=== PATIENT | male | born 2005 | race Caucasian/White ===

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

== ENCOUNTER 2023-08-19 07:56 | Emergency (ER) | payer OTHER ==
[2023-08-19] MEDS: SODIUM CHLORIDE 0.9% 1,000 ML IV STA (08:24)
[2023-08-19] MEDS: ONDANSETRON 4 MG/2 ML VIAL IVP STA (08:25)
--- NOTE | 2023-08-19 08:25 | ED Physician Documentation ---
PD HPI NVD - Stated complaint Stated Complaint: VOMITING,NAUSEA - Chief complaint Chief Complaint: Abd Pain - History obtained from History obtained from: Patient - Additonal information Additional information: Patient is a 17-year-old male presenting for evaluation of nausea and vomiting, body aches for the past 2 days. Patient states he came home from work early Wednesday morning's feeling feverish with chills. Mother reports temperature of 101 at that time. Wednesday he woke up with nausea and vomiting that has been occurring approximately every 30 minutes and unable to keep even water down wi thout vomiting. Mother did give him 2 doses of Zofran without any improvement. 1 episode of loose stools. No blood in emesis or stools. No known sick contacts with similar symptoms. No recent travel. Denies hematuria. No abdominal pain. No cough, congestion. Does not take any regular medications.Denies drug or alcohol use but does occasionally use marijuana. Review of Systems Constitutional: reports: Fever, Chills, Myalgias Cardiac: denies: Chest pain / pressure Respiratory: denies: Dyspnea GI: reports: Nausea, Vomiting. denies: Abdominal Pain : denies: Dysuria PD PAST MEDICAL HISTORY - Past Medical History Past Medical History: Yes - Past Surgical History Past Surgical History: No - Present Medications Home Medications: Ambulatory Orders Medication Instructions Recorded Confirmed No Known Home Medications 08/14/21 08/19/23 - Allergies Allergies/Adverse Reactions: Allergies Allergy/AdvReac Type Severity Reaction Status Date / Time No Known Drug Allergies Allergy Verified 08/19/23 08:07 - Social History Does the pt smoke?: No Smoking Status: Never smoker Does the pt drink ETOH?: No Does the pt have substance abuse?: No - Immunizations Immunizations are current?: Yes - POLST Patient has POLST: No PD ED PE NORMAL - General General: Alert and oriented X 3, No acute distress, Well developed/nourished - HEENT HEENT: Atraumatic, Moist mucous membranes, Pharynx benign - Neck Neck: Supple, no meningeal sign - Cardiac Cardiac: RRR, Strong equal pulses - Respiratory Respiratory: No respiratory distress, Clear bilaterally - Abdomen Abdomen: Normal bowel sounds, Soft, Non distended, Other (Mild epigastric tenderness) - Back Back: No CVA TTP - Derm Derm: Warm and dry - Neuro Neuro: Normal speech Results - Vitals Vitals: Vital Signs - 24 hr 08/19/23 08/19/23 08/19/23 08:07 09:22 11:51 Temperature 36.6 C 36.7 C Heart Rate 89 70 78 Respiratory 15 15 16 Rate Blood Pressure 162/95 H 158/87 H 156/98 H O2 Saturation 98 98 98 08/19/23 11:54 Temperature 36.9 C Heart Rate 73 Respiratory 20 Rate Blood Pressure 156/95 H O2 Saturation 99 Oxygen O2 Source Room air - Labs Labs: Laboratory Tests 08/19/23 08/19/23 08/19/23 08:14 08:26 08:26 WBC 24.8 H RBC 5.75 Hgb 16.7 Hct 48.1 MCV 83.7 MCH 29.0 MCHC 34.7 RDW 12.8 Plt Count 317 MPV 8.9 Neut # (Auto) Not Reportable Lymph # (Auto) Not Reportable [place] # (Auto) Not Reportable Eos # (Auto) Not Reportable Baso # (Auto) Not Reportable Absolute Nucleated RBC Not Reportable Total Counted 100 Band Neuts % (Manual) 8 Reactive Lymphs % (Man) 2 Abnorm Lymph % (Manual) 0 Nucleated RBC % Not Reportable Neutrophils # (Manual) 23.3 H Lymphocytes # (Manual) 1.2 L Monocytes # (Manual) 0.2 Eosinophils # (Manual) 0.0 Basophils # (Manual) 0.0 Differential Comment MANUAL DIFFERENTIAL RBC Morph Micro Appear 2+ ANISOCYTOSIS Sodium 135 Potassium 3.4 L Chloride 98 L Carbon Dioxide 24 Anion Gap 13.0 BUN 16 Creatinine 1.0 Estimated GFR (MDRD) 96 Glucose 139 H Calcium 10.5 H Total Bilirubin 1.1 H AST 24 ALT 18 Alkaline Phosphatase 75 Total Protein 8.1 Albumin 5.0 Globulin 3.1 Albumin/Globulin Ratio 1.6 Lipase 25 Urine Color Urine Clarity Urine pH Ur Specific [place] Urine Protein Urine Glucose (UA) Urine Ketones Urine Occult Blood Urine Nitrite Urine Bilirubin Urine Urobilinogen Ur Leukocyte Esterase Urine RBC Urine WBC Urine WBC Clumps Ur Squamous Epith Cells Urine Bacteria Ur Microscopic Review Urine Culture Comments Nasal Adenovirus (PCR) NOT DETECTED Nasal B. parapertussis DNA (PCR) NOT DETECTED Nasal Coronavir 229E PCR NOT DETECTED Nasal Coronavir HKU1 PCR NOT DETECTED Nasal Coronavir NL63 PCR NOT DETECTED Nasal Coronavir OC43 PCR NOT DETECTED Nasal Enterovir/Rhinovir PCR NOT DETECTED Nasal Influenza B PCR NOT DETECTED Nasal Influenza A PCR NOT DETECTED Nasal Parainfluen 1 PCR NOT DETECTED Nasal Parainfluen 2 PCR NOT DETECTED Nasal Parainfluen 3 PCR NOT DETECTED Nasal Parainfluen 4 PCR NOT DETECTED Nasal RSV (PCR) NOT DETECTED Nasal B.pertussis DNA PCR NOT DETECTED Nasal C.pneumoniae (PCR) NOT DETECTED Damian Human Metapneumo PCR NOT DETECTED Nasal M.pneumoniae (PCR) NOT DETECTED Nasal SARS-CoV-2 (PCR) NOT DETECTED Group A Strep Rapid 08/19/23 08/19/23 09:31 11:26 WBC RBC Hgb Hct MCV MCH MCHC RDW Plt Count MPV Neut # (Auto) Lymph # (Auto) [place] # (Auto) Eos # (Auto) Baso # (Auto) Absolute Nucleated RBC Total Counted Band Neuts % (Manual) Reactive Lymphs % (Man) Abnorm Lymph % (Manual) Nucleated RBC % Neutrophils # (Manual) Lymphocytes # (Manual) Monocytes # (Manual) Eosinophils # (Manual) Basophils # (Manual) Differential Comment RBC Morph Micro Appear Sodium Potassium Chloride Carbon Dioxide Anion Gap BUN Creatinine Estimated GFR (MDRD) Glucose Calcium Total Bilirubin AST ALT Alkaline Phosphatase Total Protein Albumin Globulin Albumin/Globulin Ratio Lipase Urine Color DARK YELLOW Urine Clarity CLEAR Urine pH 6.5 Ur Specific [place] 1.025 Urine Protein >=300 H Urine Glucose (UA) NEGATIVE Urine Ketones >=80 H Urine Occult Blood SMALL H Urine Nitrite NEGATIVE Urine Bilirubin SMALL H Urine Urobilinogen 1 (NORMAL) Ur Leukocyte Esterase NEGATIVE Urine RBC 0-5 Urine WBC 0-3 Urine WBC Clumps PRESENT Ur Squamous Epith Cells NONE SEEN Urine Bacteria Few Ur Microscopic Review INDICATED Urine Culture Comments NOT INDICATED Nasal Adenovirus (PCR) Nasal B. parapertussis DNA (PCR) Nasal Coronavir 229E PCR Nasal Coronavir HKU1 PCR Nasal Coronavir NL63 PCR Nasal Coronavir OC43 PCR Nasal Enterovir/Rhinovir PCR Nasal Influenza B PCR Nasal Influenza A PCR Nasal Parainfluen 1 PCR Nasal Parainfluen 2 PCR Nasal Parainfluen 3 PCR Nasal Parainfluen 4 PCR Nasal RSV (PCR) Nasal B.pertussis DNA PCR Nasal C.pneumoniae (PCR) [place] Human Metapneumo PCR Nasal M.pneumoniae (PCR) Nasal SARS-CoV-2 (PCR) Group A Strep Rapid Negative PD Medical Decision Making - ED course Complexity details: reviewed results, re-evaluated patient, d/w patient, d/w family ED course: Patient is a 17-year-old male presenting for evaluation of feeling feverish and chills with nausea and vomiting for the last day. Mild tenderness noted on exam. CBC, chemistries were reviewed and patient has a white count of 24.Potassium 3.4, chloride 98. Urinalysis shows occult blood but no RBCs. Patient was given IV fluids, Zofran and Reglan without significant improvement in his nausea and vomiting. Given his white count I did obtain a chest x-ray which was unremarkable for pneumonia as well as a CT scan of the abdomen and pelvis as he did have some mild right lower quadrant tenderness. No signs of appendicitis. Patient did admit to cannabis use and uses several times a week. Given this history we then opted to give a trial of droperidol which gave patient significant improvement in his symptoms. Strep test was also done as his girlfriend recently tested positive for strep and is negative.Respiratory swab is unremarkable. Patient feeling better here after droperidol and further fluids. He is ambulating without difficulty. Patient reports having noticed some blood in his urine recently and has had this previously and was evaluated at [facility]'s urology. Recommend close urology follow-up and given information for Dr. Floyd. No symptoms to suggest UTI.Patient tolerating p.o. intake here. Counseled regarding cannabis use. Patient is comfortable with plan for discharge. 09 - Nausea is better. Reviewed labs including elevated white count of 24, 000. On repeat abdominal exam still has some epigastric tenderness also reports tenderness with palpation of the right lower quadrant. Departure - Departure Disposition: 01 Home, Self Care Clinical Impression: Leukocytosis, Nausea & vomiting, Microscopic hematuria Condition: Stable Instructions: ED Nausea Vomiting, ED Abdominal Pain Unkn Cause Male Follow-Up: Ludin Floyd MD [Provider Admit Priv/Credential] - Comments: Your testing today shows that your white blood cell count was high. Your strep test is negative. Your respiratory swab is negative for tested viruses including COVID and influenza. Your urine does not show infection but does have a small amount of blood in it. Your CT scan of the abdomen and pelvis also does not show any significant findings like appendicitis. You were given a number of medications in order to get your nausea and vomiting under control. You have admitted to cannabis use and there is a possibility that cannabis is playing a role in your symptoms today so I would encourage you to cut down or altogether quit the use of cannabis. There is a condition called cannabis hyperemesis syndrome Which again may have caused your symptoms today. Return to the emergency department with any worsening symptoms. I have also included the information for local urologist as you have reported you have noticed some blood in your urine recently. I would recommend getting evaluated for this. Forms: PCP List Discharge Date/Time: 08/19/23 12:30
[2023-08-19 08:37] LABS: BASOPHILS % (AUTO) 0.1 %; HCT - HEMATOCRIT 48.1 % (42.0-52.0); HGB - HEMOGLOBIN 16.7 g/dL (14.0-18.0); LYMPHOCYTES % (AUTO) 3.6 %; MEAN CORPUSCULAR HGB CONC 34.7 g/dL (32.0-36.0); MEAN CORPUSCULAR VOLUME 83.7 fL (80.0-94.0); MEAN PLATELET VOLUME 8.9 fL (7.4-11.4); MONOCYTES % (AUTO) 6.7 %; NEUTROPHILS % (AUTO) 88.8 %; PLT - PLATELET COUNT 317 10^3/uL (130-450); RED BLOOD COUNT 5.75 10^6/uL (4.70-6.10); RED CELL DISTRIBUTION WIDTH 12.8 % (12.0-15.0); WHITE BLOOD COUNT 24.8 x10^3/uL (4.8-10.8)
[2023-08-19 08:46] LABS: ABNORMAL LYMPHS % (MANUAL) 0 %
[2023-08-19 08:56] LABS: ALBUMIN/GLOBULIN RATIO 1.6 (1.0-2.2); BILIRUBIN,TOTAL 1.1 mg/dL (0.2-1.0); CALCIUM 10.5 mg/dL (8.5-10.3); POTASSIUM 3.4 mmol/L (3.5-4.5); TOTAL PROTEIN 8.1 g/dL (6.4-8.9)
[2023-08-19 09:04] LABS: BAND NEUTROPHILS % (MANUAL) 8 %; LYMPHOCYTES # (MANUAL) 1.2 10^3/uL (1.5-3.5); LYMPHOCYTES % (MANUAL) 3 %; MONOCYTES # (MANUAL) 0.2 10^3/uL (0.0-1.0); NEUTROPHILS # (MANUAL) 23.3 10^3/uL (1.5-6.6); REACTIVE LYMPHS % (MANUAL) 2 %
[2023-08-19 09:05] LABS: DIFFERENTIAL COMMENT MANUAL DIFFERENTIAL; RBC MORPHOLOGY (MULTIPLE) 2+ ANISOCYTOSIS (NORMAL)
[2023-08-19 09:24] LABS: B. PARAPERTUSSIS- RESP PCR PAN NOT DETECTED; B. PERTUSSIS- RESP PCR PANEL NOT DETECTED; C. PNEUMONIAE- RESP PCR PANEL NOT DETECTED; CORONAVIRUS 229E-RESP PCR NOT DETECTED; CORONAVIRUS HKU1-RESP PCR NOT DETECTED; CORONAVIRUS NL63-RESP PCR NOT DETECTED; CORONAVIRUS OC43-RESP PCR NOT DETECTED; HUMAN METAPNEUMOVIRUS NOT DETECTED; INFLUENZA A- RESP PCR PANEL NOT DETECTED; INFLUENZA B - RESP PCR PANEL NOT DETECTED; M. PNEUMONIAE- RESP PCR PANEL NOT DETECTED; PARAINFLUENZA VIRUS 1 NOT DETECTED; PARAINFLUENZA VIRUS 2 NOT DETECTED; PARAINFLUENZA VIRUS 3 NOT DETECTED; PARAINFLUENZA VIRUS 4 NOT DETECTED; RHINOVIRUS/ENTEROVIRUS NOT DETECTED; RSV- RESP PCR PANEL NOT DETECTED; SARS-CoV-2 -RESP PCR PANEL NOT DETECTED
[2023-08-19] MEDS: METOCLOPRAMIDE 10 MG/2 ML VIAL IVP STA (09:29)
[2023-08-19 09:36] LABS: BILIRUBIN,URINE SMALL (NEGATIVE); GLUCOSE, URINE (UA) NEGATIVE (NEGATIVE); KETONES,URINE (UA) >=80 mg/dL (NEGATIVE); LEUKOCYTE ESTERASE, URINE NEGATIVE (NEGATIVE); NITRITE,URINE NEGATIVE (NEGATIVE); OCCULT BLOOD,URINE SMALL (NEGATIVE); PH,URINE 6.5 PH (5.0-7.5); PROTEIN,URINE >=300 mg/dL (NEGATIVE); UROBILINOGEN,URINE 1 (NORMAL) E.U./dL (NORMAL)
[2023-08-19 09:38] LABS: CLARITY,URINE CLEAR (CLEAR)
[2023-08-19] MEDS ORDERED: iohexoL-300 100 ML VIAL ONE (09:42)
[2023-08-19 09:51] LABS: BACTERIA,URINE Few /HPF (None Seen); RBC,URINE 0-5 /HPF (0-5); SQUAMOUS EPITHELIAL CELL,UR NONE SEEN (<= Few); WBC CLUMPS,URINE PRESENT; WBC,URINE 0-3 /HPF (0-3)
--- NOTE | 2023-08-19 09:59 | XRAY Report ---
PROCEDURE: Chest 1V INDICATIONS: WBC 24/cough TECHNIQUE: One view of the chest was acquired. COMPARISON: None. FINDINGS: Surgical changes and devices: None. Lungs and pleura: No pleural effusions or pneumothorax. Lungs are clear. Mediastinum: Mediastinal contours appear normal. Heart size is normal. Bones and chest wall: No suspicious bony lesions. Overlying soft tissues appear unremarkable. IMPRESSION: No acute cardiopulmonary process. Reviewed by: Greg Lawson MD on 08/19/2023 9:57 AM PDT Approved by: Greg Lawson MD on 08/19/2023 9:57 AM PDT Station ID: [id number]
--- NOTE | 2023-08-19 10:32 | CT Report ---
PROCEDURE: Abdomen/Pelvis W INDICATIONS: RLQ pain/ WBC 24 / vomiting CONTRAST: iohex 300 100ml TECHNIQUE: After the administration of intravenous contrast, a CT scan of the abdomen and pelvis was performed. Images were recorded and evaluated at appropriate window settings. Reformats: coronal and sagittal. F or radiation dose reduction, the following was used: automated exposure control, adjustment of mA and /or kV according to patient size. COMPARISON: None. FINDINGS: Image quality: Diagnostic. Lower chest: Unremarkable. Liver: No solid mass. Gallbladder and biliary tree: No radiopaque stones or wall thickening. No biliary dilation. Spleen: No splenomegaly. Pancreas: No pancreatic ductal dilation. Adrenals: No adrenal nodule. Kidneys and ureters: No hydronephrosis. No renal cystic lesion which requires follow up. No solid mas s. Stomach, bowel and peritoneum: No bowel distension. No pathologic free fluid. Small hiatal hernia . N ormal appendix. Lymph nodes: No central or retroperitoneal adenopathy. Vessels: No infrarenal aortic aneurysm. PELVIS Reproductive organs: Unremarkable. Bladder: No abnormal wall thickening, accounting for underdistention. Pelvic lymph nodes: No pelvic adenopathy by size criteria. Bones: No aggressive osseous abnormality. Other: No significant ventral or inguinal hernia. IMPRESSION: 1. No acute appendicitis. 2. No acute abdominal process. Reviewed by: Greg Lawson MD on 08/19/2023 10:30 AM PDT Approved by: Greg Lawson MD on 08/19/2023 10:30 AM PDT Station ID: [id number]
[2023-08-19] MEDS: iohexoL-300 100 ML VIAL IVP ONE (11:14)
[2023-08-19] MEDS: DROPERIDOL 5 MG/2 ML VIAL IVP STA (11:21)
[2023-08-19 11:40] LABS: RAPID STREP SCREEN Negative (Negative)
[2023-08-19 12:03] VITALS: BP 156/95; O2SAT 99
== END 2023-08-19 12:30 | disposition home or self-care (01) ==
LOC: ED 07:56
DX: D72.829 Elevated white blood cell count, unspecified (principal); R11.2 Nausea with vomiting, unspecified; R31.29 Other microscopic hematuria
CPT/HCPCS: 36415; 71045; 74177; 80053; 81001; 83690; 85025; 87070; 87430; 87633; 96374; 96375; 99284; J2765; Q9967; 81003; 87086

== ENCOUNTER 2023-10-14 12:15 | Outpatient (CLI) | payer OTHER ==
[2023-10-14 17:39] LABS: BASOPHILS % (AUTO) 0.2 %; EOSINOPHILS # (AUTO) 0.1 10^3/uL (0.0-0.7); EOSINOPHILS % (AUTO) 0.9 %; HCT - HEMATOCRIT 46.1 % (42.0-52.0); HGB - HEMOGLOBIN 15.3 g/dL (14.0-18.0); LYMPHOCYTES # (AUTO) 2.3 10^3/uL (1.5-3.5); LYMPHOCYTES % (AUTO) 35.9 %; MEAN CORPUSCULAR HEMOGLOBIN 29.1 pg (27.0-31.0); MEAN CORPUSCULAR HGB CONC 33.2 g/dL (32.0-36.0); MEAN CORPUSCULAR VOLUME 87.6 fL (80.0-94.0); MEAN PLATELET VOLUME 9.4 fL (7.4-11.4); MONOCYTES # (AUTO) 0.6 10^3/uL (0.0-1.0); MONOCYTES % (AUTO) 9.4 %; NEUTROPHILS # (AUTO) 3.5 10^3/uL (1.5-6.6); NEUTROPHILS % (AUTO) 53.4 %; PLT - PLATELET COUNT 314 10^3/uL (130-450); RED BLOOD COUNT 5.26 10^6/uL (4.70-6.10); WHITE BLOOD COUNT 6.5 x10^3/uL (4.8-10.8)
[2023-10-14 17:53] LABS: CALCIUM 10.2 mg/dL (8.5-10.3); POTASSIUM 4.3 mmol/L (3.5-4.5)
== END 2023-10-14 12:30 | disposition home or self-care (01) ==
LOC: LAB.N 12:15
PROVIDERS: ATTEND Physician Assistant Medical
DX: R10.9 Unspecified abdominal pain (principal)
CPT/HCPCS: 36415; 80048; 85025; 87086

== ENCOUNTER 2023-10-19 09:24 | Outpatient (CLI) | payer OTHER ==
[~2023-10-19 09:24] MED LIST: DIATRIZOATE MEGLU/DIATRIZO SOD 30 ML BOTTLE PO ONE
--- NOTE | 2023-10-19 12:15 | CT Report ---
PROCEDURE: Abdomen/Pelvis WO INDICATIONS: R FLANK PAIN TECHNIQUE: A CT scan of the abdomen and pelvis was performed without the use of intravenous contrast. Images we re recorded and evaluated at appropriate window settings. Reformats: coronal and sagittal. For radiat ion dose reduction, the following was used: automated exposure control, adjustment of mA and/or kV ac cording to patient size. COMPARISON: 08/19/2023 FINDINGS: Image quality: Diagnostic Lower chest: Unremarkable lung bases. Small hiatal hernia. Esophageal wall thickening distally, nonsp ecific. Liver: Solid organs are not well evaluated in the absence of IV contrast. No contour deforming mass. Gallbladder and biliary system: No pathologic biliary ductal dilation. Gallbladder is unremarkable Pancreas: No ductal dilation Spleen: Nonenlarged Adrenals: No discrete nodules Kidneys: No solid mass or hydronephrosis. Left lower pole punctate nonobstructing calculi are present . There is a punctate questionable hyperdensity in the expected location of the right UVJ (coronal im age 84). Vessels and lymph nodes: No abdominal aortic aneurysm. No pathologic lymph nodes by size criteria. Bowel and peritoneum: No evidence of small bowel obstruction. No pathologic ascites. The appendix is nondilated and contains internal gas Body wall: Small fat-containing buckle hernia Pelvis: Bladder is unremarkable. Prostate is not well eval on this study Bones: No acute or suspicious osseous findings. Suspected Schmorl's node at the superior endplate of L2 IMPRESSION: No hydronephrosis. Nonobstructing punctate left lower pole calculi are present. In the expected locat ion of the right UVJ, there is a punctate hyperdensity (coronal image 84), that may represent a tiny stone versus artifact. Reviewed by: Brady Mendes MD on 10/19/2023 12:13 PM PDT Approved by: Brady Mendes MD on 10/19/2023 12:13 PM PDT Station ID: [id number]
== END 2023-10-19 09:25 | disposition home or self-care (01) ==
LOC: DI 09:24
PROVIDERS: ATTEND Physician Assistant Medical
DX: N20.1 Calculus of ureter (principal)

== ENCOUNTER 2023-11-18 11:04 | Emergency (ER) | payer OTHER ==
--- NOTE | 2023-11-18 11:37 | ED Physician Documentation ---
History of Present Illness - Stated complaint Stated Complaint: N/V - Chief complaint Chief Complaint: Abd Pain - Additonal information Additional information: 17-year-old male with history of hyperemesis cannabinoid syndrome who is here a couple months ago for similar symptoms presents back into the emergency department today for 5 days of nausea and vomiting. Patient is here with his mother's boyfriend and he states that when he was here couple months ago patient endorsed to cannabis use and he has not used any cannabis since then he smoked weed on Wednesday which is what triggered another episode of hyperemesis. He says that he has been taking Zofran [id number] at home but feels like he is not keeping enough fluids down and feels dehydrated and is fairly confident that the symptoms are from the cannabis. No abdominal pain no recent fevers or chills no recent upper respiratory infection symptoms. Voiding fine said he has not had a bowel movement because he has not been able to eat anything. PD PAST MEDICAL HISTORY - Past Surgical History Past Surgical History: No - Present Medications Home Medications: Ambulatory Orders Medication Instructions Recorded Confirmed Ondansetron HCl 4 mg PO PRN PRN 11/18/23 11/18/23 Ondansetron Odt [Zofran Odt] 4 mg TL Q6H PRN #10 tablet 11/18/23 Promethazine [Phenergan] 25 mg PO Q6H PRN 11/18/23 11/18/23 - Allergies Allergies/Adverse Reactions: Allergies Allergy/AdvReac Type Severity Reaction Status Date / Time No Known Drug Allergies Allergy Verified 11/18/23 11:13 - Social History Does the pt smoke?: No Smoking Status: Never smoker Does the pt drink ETOH?: No Does the pt have substance abuse?: No - Immunizations Immunizations are current?: Yes - POLST Patient has POLST: No PD ED PE NORMAL - Vitals Vital signs reviewed: Yes - General General: Alert and oriented X 3, No acute distress, Well developed/nourished - Cardiac Cardiac: RRR, No gallop - Respiratory Respiratory: No respiratory distress - Abdomen Abdomen: Normal bowel sounds, Soft, Non distended, No organomegaly, Other (mild generalized tenderness) - Back Back: No CVA TTP - Derm Derm: Normal color, Warm and dry, No rash - Extremities Extremities: No edema Results - Vitals Vitals: Vital Signs - 24 hr 11/18/23 11/18/23 11:09 13:03 Temperature 36.5 C 36.8 C Heart Rate 140 H 100 Respiratory 16 18 Rate Blood Pressure 121/87 H 133/97 H O2 Saturation 98 99 Oxygen O2 Source Room air - EKG (time done) 1150 EKG releavant findings:: EKG personally interpreted by author of this note. Relevant findings are: Rate: Rate (enter#) (109) Rhythm: Sinus tachycardia [place]: Normal Intervals: Normal NM QRS: Normal Ischemia: Normal ST segments Computer interpretation: Agree with computer - Labs Labs: Laboratory Tests 11/18/23 11/18/23 11:39 11:39 WBC 12.4 H RBC 7.09 H Hgb 20.9 H Hct 58.7 H MCV 82.8 MCH 29.5 MCHC 35.6 RDW 12.8 Plt Count 380 MPV 8.6 Neut # (Auto) 8.6 H Lymph # (Auto) 2.3 [place] # (Auto) 1.5 H Eos # (Auto) 0.0 Baso # (Auto) 0.1 Absolute Nucleated RBC 0.00 Nucleated RBC % 0.0 Sodium 132 L Potassium 3.2 L Chloride 90 L Carbon Dioxide 31 Anion Gap 11.0 BUN 28 H Creatinine 1.2 Estimated GFR (MDRD) 78 L Glucose 120 H Calcium 10.3 Magnesium 2.1 Total Bilirubin 1.6 H AST 15 ALT 12 Alkaline Phosphatase 71 Total Protein 8.2 Albumin 4.9 Globulin 3.3 Albumin/Globulin Ratio 1.5 Lipase 54 PD Medical Decision Making - ED course ED course: 17-year-old male presents emergency department for nausea vomiting most likely due to hyperemesis cannabinoid syndrome as patient has not used any cannabis since last visit in July and smoked a blunt on Wednesday which is what triggered this episode of nausea vomiting. He is overall well-appearing he is slightly tachycardic most likely due to dehydration he was given a liter of IV fluids in the emergency department for dehydration and EKG was checked because patient says he has been taking a lot of Zofran at home make sure that there is no QT prolonging syndrome. Labs are complete for further evaluation he does have mild leukocytosis 12.4 but significantly less than the last time he was here for his hyperemesis cannabinoid syndrome. He does have hypokalemia, potassium 3.2, he was given 40 mEq of p.o. potassium chloride for replacement. Sodium was 132 he was given 1 L of IV fluids to help with his hyponatremia BUN elevated at 28 most likely prerenal due to dehydration. Patient was given metoclopramide here in the emergency department which significantly improved his symptoms he said that he was very hungry and ready to try eating he is able to eat and drink without any difficulty was told how to manage his symptoms at home and given a refill of Zofran. An EKG was also complete to look for QT prolongation and it was found to be within normal limits QTc was 455. Patient told to follow-up with primary care provider and to no longer use cannabis.Return precautions given. Departure - Departure Disposition: 01 Home, Self Care Clinical Impression: Cannabinoid hyperemesis syndrome, Hypokalemia Instructions: Hyperemesis, ED Diet [place] Prescriptions: Ondansetron Odt [Zofran Odt] 4 mg TL Q6H PRN #10 tablet PRN Reason: Nausea / Vomiting Comments: Thank you for trusting us with your care. If you are taking 4 mg of Zofran you can up at 8 mg every 8 hours for nausea. Consider rehydrating yourself with coconut water as we discussed I recommend the roar drink. Please go home drink plent of fluids and try to eat a bland diet while introducing food back into your system. Forms: PCP List Discharge Date/Time: 11/18/23 13:11
[2023-11-18 11:48] LABS: BASOPHILS # (AUTO) 0.1 10^3/uL (0.0-0.1); BASOPHILS % (AUTO) 0.5 %; EOSINOPHILS % (AUTO) 0.2 %; HCT - HEMATOCRIT 58.7 % (42.0-52.0); HGB - HEMOGLOBIN 20.9 g/dL (14.0-18.0); LYMPHOCYTES # (AUTO) 2.3 10^3/uL (1.5-3.5); LYMPHOCYTES % (AUTO) 18.2 %; MEAN CORPUSCULAR HEMOGLOBIN 29.5 pg (27.0-31.0); MEAN CORPUSCULAR HGB CONC 35.6 g/dL (32.0-36.0); MEAN CORPUSCULAR VOLUME 82.8 fL (80.0-94.0); MEAN PLATELET VOLUME 8.6 fL (7.4-11.4); MONOCYTES # (AUTO) 1.5 10^3/uL (0.0-1.0); MONOCYTES % (AUTO) 11.9 %; NEUTROPHILS # (AUTO) 8.6 10^3/uL (1.5-6.6); NEUTROPHILS % (AUTO) 68.9 %; PLT - PLATELET COUNT 380 10^3/uL (130-450); RED BLOOD COUNT 7.09 10^6/uL (4.70-6.10); RED CELL DISTRIBUTION WIDTH 12.8 % (12.0-15.0); WHITE BLOOD COUNT 12.4 x10^3/uL (4.8-10.8)
[2023-11-18] MEDS: SODIUM CHLORIDE 0.9% 1,000 ML IV ONE (11:50)
[2023-11-18 12:00] LABS: ALBUMIN 4.9 g/dL (3.2-5.5); ALBUMIN/GLOBULIN RATIO 1.5 (1.0-2.2); BILIRUBIN,TOTAL 1.6 mg/dL (0.2-1.0); CALCIUM 10.3 mg/dL (8.5-10.3); CREATININE 1.2 mg/dL (0.6-1.3); MAGNESIUM 2.1 mg/dL (1.7-2.3); POTASSIUM 3.2 mmol/L (3.5-4.5); TOTAL PROTEIN 8.2 g/dL (6.4-8.9)
[2023-11-18] MEDS: METOCLOPRAMIDE 10 MG/2 ML VIAL IVP STA (12:06)
[2023-11-18] MEDS: POTASSIUM CHLORIDE 20 MEQ TABLET PO STA (12:18)
[2023-11-18 13:08] VITALS: BP 133/97; O2SAT 99
== END 2023-11-18 13:11 | disposition home or self-care (01) ==
LOC: ED 11:04
DX: R11.10 Vomiting, unspecified (principal); F12.90 Cannabis use, unspecified, uncomplicated; E87.6 Hypokalemia
CPT/HCPCS: 36415; 80053; 83690; 83735; 85025; 93005; 96361; 96374; 99284; A9270; J2765